=== PATIENT | male | born 1935 | race Caucasian/White ===

== ENCOUNTER → 2016-11-18 | Outpatient (CLI) | payer MEDICARE, BC ==
[2005-07-15 07:21] VITALS: TEMP 97.7
[~2016-11-18] MED LIST: ASPIRIN E.C. 8181 MG PO; CETIRIZINE 10 MG PO; CLARITIN10 MG PO; HCTZ 25MG TAB25 MG PO; HCTZ 25MG25 MG PO; LEXAPRO 5MG5 MG PO; MUCINEX1200 MG PO; MULTIPLE VITAMI1 TA1 PO; OFEV150 MG PO; PRILOSEC 20MG20 MG PO; RESTORIL30 MG PO; ROBITUSSIN DM 105 ML PO; TESSALON PERLE200 MG PO; ZITHROMAX 250M250 MG PO; ZOCOR 10MG10 MG PO; ZOCOR 20MG20 MG PO; ZYRTEC 10MG10 MG PO
== END ==
LOC: COL.RAD 10:37
DX: K21.9 Gastro-esophageal reflux disease without esophagitis (principal); K44.9 Diaphragmatic hernia without obstruction or gangrene

== ENCOUNTER 2016-12-22 10:10 | Observation (INO) | payer MEDICARE, BC ==
[~2016-12-22] VITALS: Ht 175.3 cm; Wt 78.9 kg
[2016-12-22] VITALS (10 sets, daily range): BP systolic 96–136; BP diastolic 33–88; PULSE 62–86; TEMP 98–98.7
[~2016-12-22 10:10] MED LIST changes: -LEXAPRO 5MG5 MG PO; -MUCINEX1200 MG PO; -OFEV150 MG PO; -ROBITUSSIN DM 105 ML PO; -ZITHROMAX 250M250 MG PO
[2016-12-22] MEDS ORDERED: PRILOSEC 20MG20 MG PO (11:14)
[2016-12-22] MEDS ORDERED: LEXAPRO 5MG5 MG PO (11:20)
[2016-12-22] MEDS ORDERED: OFEV150 MG PO (11:22)
[2016-12-23] VITALS (7 sets, daily range): BP systolic 94–142; BP diastolic 42–98; PULSE 68–99; TEMP 97.5–99.8
[2016-12-24 02:11] VITALS: BP 160/80; PULSE 77; TEMP 99.1
[2016-12-24 05:12] VITALS: BP 145/68; PULSE 69; TEMP 98.2
[2016-12-24 07:30] LABS: ADJUSTED CALCIUM 8.8 mg/dL (8.4-10.2); ALBUMIN 3.8 gm/dL (3.5-5.0); BILIRUBIN,TOTAL 0.9 mg/dL (0.0-1.0); CALCIUM 8.6 mg/dL (8.4-10.2); CREATININE, serum 0.83 mg/dL (0.66-1.25); TOTAL PROTEIN 6.8 gm/dL (6.4-8.2)
[2016-12-24 10:36] VITALS: BP 107/75; PULSE 71; TEMP 97.5
[2016-12-24 13:54] VITALS: BP 148/66; PULSE 71; TEMP 98.3
== END 2016-12-24 16:57 | disposition home or self-care (01) ==
LOC: SDCO 10:10 → SURG 14:37 → SDCO 12-23 20:40 → SURG 12-24 16:57
PROVIDERS: Surgery
DX: K21.0 Gastro-esophageal reflux disease with esophagitis (principal); K44.9 Diaphragmatic hernia without obstruction or gangrene; K22.70 Barrett's esophagus without dysplasia; R05 Cough; G47.00 Insomnia, unspecified; E78.5 Hyperlipidemia, unspecified; J45.909 Unspecified asthma, uncomplicated; G47.33 Obstructive sleep apnea (adult) (pediatric); M05.9 Rheumatoid arthritis with rheumatoid factor, unspecified; J84.112 Idiopathic pulmonary fibrosis; R09.02 Hypoxemia; Z87.891 Personal history of nicotine dependence; Z82.3 Family history of stroke; Z82.49 Family history of ischemic heart disease and other diseases of the circulatory system
CPT/HCPCS: OP; A9284; C1713; J1100; J1170; J1885; J2270; J2405; J2704; J2710; J7030; J7042; J7120

== ENCOUNTER 2017-02-19 08:29 | Inpatient (IN) | payer MEDICARE, BC ==
[~2017-02-19] VITALS: Ht 177.8 cm; Wt 75.4 kg
[~2017-02-19 08:29] MED LIST changes: +LEXAPRO 5MG5 MG PO; +OFEV150 MG PO
[2017-02-19] MEDS ORDERED: MUCINEX1200 MG PO (09:10)
[2017-02-19] MEDS ORDERED: ROBITUSSIN DM 105 ML PO (09:17)
[2017-02-19 09:30] LABS: HEMATOCRIT 38.9 % (42.0-52.0); HEMOGLOBIN 13.7 g/dl (13.5-18.0); MEAN CELL VOLUME 89 fl (80.0-100.0); MEAN CORPUSCULAR HEMOGLOBIN 31 pg (27.0-31.0); MEAN CORPUSCULAR HGB CONC 35 g/dl (33.0-37.0); MEAN PLATELET VOLUME 8.2 fl (7.4-10.4); PLATELET COUNT 149 K/mm3 (130-400); RED BLOOD COUNT 4.37 M/mm3 (4.20-5.60); REDCELL DISTRIBUTION WIDTH-CV 13.7 % (11.5-14.5); WHITE BLOOD COUNT 14.8 K/mm3 (4.8-10.8)
[2017-02-19 09:41] LABS: ADD PATHOLOGY DIFF REVIEW NO
[2017-02-19 09:42] LABS: INR 1.1 (0.8-3.0); PROTHROMBIN TIME 12.5 SECONDS (9.7-12.8)
[2017-02-19 09:45] LABS: ALBUMIN 4.3 gm/dL (3.5-5.0); BILIRUBIN,TOTAL 1.1 mg/dL (0.0-1.0); CALCIUM 9.2 mg/dL (8.4-10.2); CREATININE, serum 0.89 mg/dL (0.66-1.25); POTASSIUM 3.9 mmol/L (3.4-5.0); TOTAL PROTEIN 7.6 gm/dL (6.4-8.2)
[2017-02-19 10:33] LABS: BAND 45 % (0-10); NEUTROPHILS 48 % (42.0-75.2); PLATELET ESTIMATE NORMAL (NORMAL); TOTAL CELLS COUNTED 100
[2017-02-19 10:34] LABS: TOXIC GRANULATION PRESENT
[2017-02-19 11:05] LABS: PH 7 (5-8); SQUAMOUS EPITHELIAL None Seen /hpf; URINE APPEARANCE Clear; URINE BACTERIA None Seen /hpf; URINE BILIRUBIN Negative (NEGATIVE); URINE BLOOD 2+ (NEGATIVE); URINE COLOR Yellow; URINE GLUCOSE Negative (NEGATIVE); URINE KETONE Negative (NEGATIVE); URINE WBC 0-2 /hpf
[2017-02-19 13:10] VITALS: BP 150/79; PULSE 98; TEMP 99.6
[2017-02-19 15:39] VITALS: BP 145/65; PULSE 95; TEMP 98.9
[2017-02-19 19:38] VITALS: BP 135/68; PULSE 86; TEMP 98.6
[2017-02-19 23:16] VITALS: BP 119/57; PULSE 78; TEMP 98.7
[2017-02-20 04:58] VITALS: BP 118/80; PULSE 78; TEMP 98.3
[2017-02-20 07:15] LABS: MEAN CELL VOLUME 91 fl (80.0-100.0); MEAN CORPUSCULAR HGB CONC 35 g/dl (33.0-37.0); MEAN PLATELET VOLUME 8.5 fl (7.4-10.4); PLATELET COUNT 137 K/mm3 (130-400); RED BLOOD COUNT 3.74 M/mm3 (4.20-5.60); WHITE BLOOD COUNT 13.6 K/mm3 (4.8-10.8)
[2017-02-20 07:18] LABS: CALCIUM 8.5 mg/dL (8.4-10.2); CREATININE, serum 0.84 mg/dL (0.66-1.25); POTASSIUM 4.2 mmol/L (3.4-5.0)
[2017-02-20 07:19] LABS: ADD PATHOLOGY DIFF REVIEW NO; HEMATOCRIT 33.9 % (42.0-52.0); HEMOGLOBIN 11.7 g/dl (13.5-18.0); MEAN CORPUSCULAR HEMOGLOBIN 31 pg (27.0-31.0)
[2017-02-20 07:55] VITALS: BP 118/64; PULSE 80; TEMP 97.9
[2017-02-20 12:05] VITALS: BP 129/65; PULSE 72; TEMP 98
[2017-02-20 14:09] LABS: BAND 51 % (0-10); NEUTROPHILS 41 % (42.0-75.2); TOTAL CELLS COUNTED 100
[2017-02-20 14:10] LABS: PLATELET ESTIMATE DECREASED (NORMAL)
[2017-02-20 16:53] VITALS: BP 124/63; PULSE 76; TEMP 99.3
[2017-02-20 20:43] VITALS: BP 124/68; PULSE 75; TEMP 99.3
[2017-02-21 00:14] VITALS: BP 142/70; PULSE 68
[2017-02-21 04:37] VITALS: BP 136/72; PULSE 70; TEMP 97.6
[2017-02-21 07:46] VITALS: BP 130/70; PULSE 72; TEMP 98
[2017-02-21 08:33] LABS: BASO % 0.3 % (0.0-2.0); EOS # 0.5 (0.0-0.7); EOS % 4.3 % (0-4.0); GRAN # 8.3 (1.4-6.5); GRAN % 76.3 % (42.2-75.2); HEMOGLOBIN 12.2 g/dl (13.5-18.0); LYMPH # 1.4 (1.2-3.4); LYMPH % 12.7 % (20.0-51.0); MEAN CELL VOLUME 91 fl (80.0-100.0); MEAN CORPUSCULAR HEMOGLOBIN 32 pg (27.0-31.0); MEAN CORPUSCULAR HGB CONC 35 g/dl (33.0-37.0); MEAN PLATELET VOLUME 8.4 fl (7.4-10.4); MONO # 0.6 (0.1-0.6); MONO % 5.8 % (1.7-9.3); PLATELET COUNT 165 K/mm3 (130-400); RED BLOOD COUNT 3.83 M/mm3 (4.20-5.60); WHITE BLOOD COUNT 10.8 K/mm3 (4.8-10.8)
[2017-02-21 08:39] LABS: HEMATOCRIT 34.8 % (42.0-52.0)
[2017-02-21 08:42] LABS: CALCIUM 8.6 mg/dL (8.4-10.2); CREATININE, serum 0.82 mg/dL (0.66-1.25); POTASSIUM 3.9 mmol/L (3.4-5.0)
[2017-02-21 12:23] VITALS: BP 129/69; PULSE 65; TEMP 97.4
[2017-02-21] MEDS ORDERED: ZITHROMAX 250M250 MG PO (15:04)
[2017-02-21 15:50] VITALS: BP 143/71; PULSE 66; TEMP 98
[2017-02-21 17:24] VITALS: BP 143/71; PULSE 66; TEMP 98
== END 2017-02-21 17:50 | DRG 194 ==
LOC: COL.ER 08:29 → MEDICAL 10:50
PROVIDERS: Emergency Medicine; Family Medicine
DX: J18.9 Pneumonia, unspecified organism (principal); E87.1 Hypo-osmolality and hyponatremia; E44.0 Moderate protein-calorie malnutrition; G47.33 Obstructive sleep apnea (adult) (pediatric); I10 Essential (primary) hypertension; J84.112 Idiopathic pulmonary fibrosis; F32.9 Major depressive disorder, single episode, unspecified; E78.5 Hyperlipidemia, unspecified; Z68.23 Body mass index [BMI] 23.0-23.9, adult; Z87.891 Personal history of nicotine dependence; Z99.81 Dependence on supplemental oxygen; W06.XXXA Fall from bed, initial encounter
CPT/HCPCS: 99222-AI; 99232-AI; 99239; G8978-GP; G8979-GP; J0696; J1650; J1956; J3480; J7030

== ENCOUNTER 2017-02-21 17:44 | Inpatient (IN) | payer MEDICARE, BC ==
[~2017-02-21] VITALS: Ht 177.8 cm; Wt 74.8 kg
[~2017-02-21 17:44] MED LIST changes: +MUCINEX1200 MG PO; +ROBITUSSIN DM 105 ML PO; +ZITHROMAX 250M250 MG PO
[2017-02-21 17:55] VITALS: BP 148/67; PULSE 76; TEMP 97.8
[2017-02-22 04:44] VITALS: BP 129/73; PULSE 64; TEMP 98.4
[2017-02-22 07:26] VITALS: BP 100/82; PULSE 71; TEMP 98.6
[2017-02-22 18:54] VITALS: BP 140/80; PULSE 72; TEMP 97.8
[2017-02-23 03:38] VITALS: BP 132/75; PULSE 89; TEMP 99.3
[2017-02-23 16:23] VITALS: BP 138/64; PULSE 71; TEMP 98.4
[2017-02-24 05:14] VITALS: BP 111/87; PULSE 83; TEMP 98.7
[2017-02-24 17:05] VITALS: BP 131/71; PULSE 66; TEMP 97.9
[2017-02-25 05:00] VITALS: BP 112/55; PULSE 64; TEMP 98.6
[2017-02-25] MEDS ORDERED: TYLENOL 325MG325 MG PO (09:27)
== END 2017-02-25 12:35 | disposition home or self-care (01) | DRG 947 ==
DX: R53.81 Other malaise (principal); J18.9 Pneumonia, unspecified organism; E44.0 Moderate protein-calorie malnutrition; J84.112 Idiopathic pulmonary fibrosis; I10 Essential (primary) hypertension; F32.9 Major depressive disorder, single episode, unspecified
CPT/HCPCS: 99222-AI; 99232-AI; 99239; J1650

== ENCOUNTER 2017-04-12 12:06 | Inpatient (IN) | payer MEDICARE, BC ==
[~2017-04-12] VITALS: Ht 175.3 cm; Wt 73.4 kg
[~2017-04-12 12:06] MED LIST changes: +TYLENOL 325MG325 MG PO
[2017-04-12 14:13] LABS: BASO # 0.1 (0.0-0.2); BASO % 0.6 % (0.0-2.0); EOS # 0.3 (0.0-0.7); EOS % 2.4 % (0-4.0); GRAN # 8.6 (1.4-6.5); GRAN % 78.2 % (42.2-75.2); HEMOGLOBIN 14.3 g/dl (13.5-18.0); LYMPH # 1.2 (1.2-3.4); LYMPH % 11.2 % (20.0-51.0); MEAN CELL VOLUME 93 fl (80.0-100.0); MEAN CORPUSCULAR HEMOGLOBIN 32 pg (27.0-31.0); MEAN CORPUSCULAR HGB CONC 34 g/dl (33.0-37.0); MEAN PLATELET VOLUME 8.4 fl (7.4-10.4); MONO # 0.8 (0.1-0.6); MONO % 7.3 % (1.7-9.3); PLATELET COUNT 159 K/mm3 (130-400); RED BLOOD COUNT 4.54 M/mm3 (4.20-5.60)
[2017-04-12 14:20] LABS: COLLECTION METHOD CLEAN CATCH
[2017-04-12 14:22] LABS: ADJUSTED CALCIUM 9.2 mg/dL (8.4-10.2); ALBUMIN 4.7 gm/dL (3.5-5.0); BILIRUBIN,TOTAL 0.8 mg/dL (0.0-1.0); CALCIUM 9.8 mg/dL (8.4-10.2); CREATININE, serum 0.88 mg/dL (0.66-1.25); MAGNESIUM 1.9 mg/dL (1.6-2.3); PHOSPHOROUS 2.7 mg/dL (2.5-4.5); POTASSIUM 4.2 mmol/L (3.4-5.0); TOTAL PROTEIN 7.8 gm/dL (6.4-8.2)
[2017-04-12 14:27] LABS: MUCOUS Present /lpf; PH 7 (5-8); SQUAMOUS EPITHELIAL None Seen /hpf; URINE APPEARANCE Clear; URINE BACTERIA None Seen /hpf; URINE BILIRUBIN Negative (NEGATIVE); URINE BLOOD Negative (NEGATIVE); URINE COLOR Yellow; URINE GLUCOSE Negative (NEGATIVE); URINE KETONE Negative (NEGATIVE); URINE LEUKOCYTE ESTERASE Negative (NEGATIVE); URINE PROTEIN(semi-quant) 1+ (NEGATIVE); URINE RBC 0-2 /hpf; URINE UROBILINOGEN Negative (NEGATIVE); URINE WBC 0-2 /hpf
[2017-04-12 14:32] LABS: TROPONIN-I 0.03 ng/mL (0.000-0.034)
[2017-04-12] MEDS ORDERED: TESSALON PERLE200 MG PO (18:51)
[2017-04-12] MEDS ORDERED: ZYRTEC 10MG10 MG PO (18:51)
[2017-04-12] MEDS ORDERED: LEXAPRO 5MG5 MG PO (18:52)
[2017-04-12] MEDS ORDERED: HCTZ 25MG TAB25 MG PO (18:52)
[2017-04-12] MEDS ORDERED: CENTRUM SILVER1 TA2 PO (18:52)
[2017-04-12] MEDS ORDERED: ZOCOR 20MG20 MG PO (18:53)
[2017-04-12] MEDS ORDERED: RESTORIL30 MG (18:53)
[2017-04-12] MEDS ORDERED: OFEV150 MG PO (18:53)
[2017-04-12] MEDS ORDERED: KENALOG DENTAL P5 GM DT (18:54)
[2017-04-12] MEDS ORDERED: OFEV100 MG PO (18:59)
[2017-04-12 20:49] LABS: PROTHROMBIN TIME 11.1 SECONDS (9.7-12.8)
[2017-04-12 21:00] LABS: MAGNESIUM 1.8 mg/dL (1.6-2.3)
[2017-04-12 21:23] LABS: TROPONIN-I 6 HR POST INITIAL 0.035 ng/mL (0.000-0.034)
[2017-04-12 21:57] VITALS: BP 134/77; PULSE 70; TEMP 98.1
[2017-04-12 23:42] VITALS: BP 125/60; PULSE 77; TEMP 98.3
[2017-04-13] VITALS (17 sets, daily range): BP systolic 109–157; BP diastolic 54–99; PULSE 18–95; TEMP 97.4–98.2
[2017-04-13 07:30] LABS: BASO # 0.1 (0.0-0.2); BASO % 0.9 % (0.0-2.0); EOS # 0.7 (0.0-0.7); EOS % 9.5 % (0-4.0); GRAN # 4.2 (1.4-6.5); GRAN % 55.3 % (42.2-75.2); LYMPH # 1.9 (1.2-3.4); LYMPH % 25.2 % (20.0-51.0); MEAN CELL VOLUME 93 fl (80.0-100.0); MEAN CORPUSCULAR HGB CONC 34 g/dl (33.0-37.0); MEAN PLATELET VOLUME 8.4 fl (7.4-10.4); MONO # 0.7 (0.1-0.6); MONO % 8.7 % (1.7-9.3); PLATELET COUNT 150 K/mm3 (130-400); WHITE BLOOD COUNT 7.6 K/mm3 (4.8-10.8)
[2017-04-13 07:44] LABS: ADJUSTED CALCIUM 8.9 mg/dL (8.4-10.2); ALBUMIN 3.6 gm/dL (3.5-5.0); BILIRUBIN,TOTAL 0.6 mg/dL (0.0-1.0); CALCIUM 8.6 mg/dL (8.4-10.2); CHOLESTEROL RISK RATIO 2.8; CREATININE, serum 0.89 mg/dL (0.66-1.25); POTASSIUM 3.7 mmol/L (3.4-5.0); TOTAL PROTEIN 5.9 gm/dL (6.4-8.2)
[2017-04-13 07:46] LABS: HEMATOCRIT 35.2 % (42.0-52.0); HEMOGLOBIN 12.1 g/dl (13.5-18.0); MEAN CORPUSCULAR HEMOGLOBIN 32 pg (27.0-31.0)
[2017-04-13 07:54] LABS: TROPONIN-I 0.019 ng/mL (0.000-0.034)
[2017-04-13 21:24] LABS: THYROID STIMULATING HORMONE 4.69 uIU/mL (0.465-4.680)
[2017-04-14] VITALS (7 sets, daily range): BP systolic 105–127; BP diastolic 56–69; PULSE 56–66; TEMP 97.2–98.5
[2017-04-14 07:24] LABS: BASO # 0.1 (0.0-0.2); BASO % 0.7 % (0.0-2.0); EOS # 0.8 (0.0-0.7); EOS % 7.4 % (0-4.0); GRAN # 6.9 (1.4-6.5); GRAN % 64.9 % (42.2-75.2); HEMATOCRIT 38.3 % (42.0-52.0); LYMPH % 19.1 % (20.0-51.0); MEAN CELL VOLUME 95 fl (80.0-100.0); MEAN CORPUSCULAR HEMOGLOBIN 32 pg (27.0-31.0); MEAN CORPUSCULAR HGB CONC 34 g/dl (33.0-37.0); MEAN PLATELET VOLUME 8.2 fl (7.4-10.4); MONO # 0.8 (0.1-0.6); MONO % 7.5 % (1.7-9.3); PLATELET COUNT 165 K/mm3 (130-400); RED BLOOD COUNT 4.05 M/mm3 (4.20-5.60); WHITE BLOOD COUNT 10.6 K/mm3 (4.8-10.8)
[2017-04-14 07:47] LABS: CREATININE, serum 0.94 mg/dL (0.66-1.25); POTASSIUM 4.1 mmol/L (3.4-5.0)
[2017-04-15 00:04] VITALS: BP 122/59; PULSE 58; TEMP 98.4
[2017-04-15 03:47] VITALS: BP 123/65; PULSE 55; TEMP 97.2
[2017-04-15 06:43] LABS: BASO # 0.1 (0.0-0.2); BASO % 0.7 % (0.0-2.0); EOS # 0.7 (0.0-0.7); EOS % 9.6 % (0-4.0); GRAN # 4.1 (1.4-6.5); GRAN % 59.4 % (42.2-75.2); HEMATOCRIT 37.5 % (42.0-52.0); HEMOGLOBIN 12.9 g/dl (13.5-18.0); LYMPH # 1.5 (1.2-3.4); LYMPH % 20.9 % (20.0-51.0); MEAN CELL VOLUME 94 fl (80.0-100.0); MEAN CORPUSCULAR HEMOGLOBIN 32 pg (27.0-31.0); MEAN CORPUSCULAR HGB CONC 34 g/dl (33.0-37.0); MEAN PLATELET VOLUME 7.7 fl (7.4-10.4); MONO # 0.6 (0.1-0.6); MONO % 8.8 % (1.7-9.3); PLATELET COUNT 133 K/mm3 (130-400)
[2017-04-15 06:58] LABS: CALCIUM 8.9 mg/dL (8.4-10.2); CREATININE, serum 0.88 mg/dL (0.66-1.25); MAGNESIUM 1.8 mg/dL (1.6-2.3); PHOSPHOROUS 3.2 mg/dL (2.5-4.5); POTASSIUM 4.1 mmol/L (3.4-5.0)
[2017-04-15 08:26] VITALS: BP 114/61; PULSE 69; TEMP 97.8
[2017-04-15] MEDS ORDERED: TOPROL XL 50MG50 MG PO (08:36)
[2017-04-15] MEDS ORDERED: NITRO-DUR0.6 MG/PAT TD ×2 (08:36)
[2017-04-15] MEDS ORDERED: NITRO-DUR0.4 MG/PAT TD (10:21)
== END 2017-04-15 12:35 | disposition home or self-care (01) | DRG 281 ==
LOC: COL.ER 12:06 → MEDICAL 18:37
PROVIDERS: Emergency Medicine; Nurse Practitioner Family; Physician Assistant; Psychiatry & Neurology Neurology
PROC: B2111ZZ Fluoroscopy of Multiple Coronary Arteries using Low Osmolar Contrast (ICD-10-PCS; principal; 2017-04-13)
PROC: 4A023N6 Measurement of Cardiac Sampling and Pressure, Right Heart, Percutaneous Approach (ICD-10-PCS; 2017-04-13)
DX: I21.4 Non-ST elevation (NSTEMI) myocardial infarction (principal); E46 Unspecified protein-calorie malnutrition; E87.1 Hypo-osmolality and hyponatremia; I10 Essential (primary) hypertension; I25.82 Chronic total occlusion of coronary artery; I25.10 Atherosclerotic heart disease of native coronary artery without angina pectoris; J84.112 Idiopathic pulmonary fibrosis; G47.33 Obstructive sleep apnea (adult) (pediatric); Z87.891 Personal history of nicotine dependence; I27.20 Pulmonary hypertension, unspecified
CPT/HCPCS: 99223-AI; 99233-AI; 99239; A9502; C1760; C1894; G0103; J1650; J2250; J2785; J3010; J7030; J7050; Q9967

== ENCOUNTER 2017-06-12 13:34 | Inpatient (IN) | payer MEDICARE, BC ==
[~2017-06-12] VITALS: Ht 177.8 cm; Wt 72.5 kg
[2017-06-12] VITALS (387 sets, daily range): BP systolic 126; BP diastolic 72; PULSE 62–65; TEMP 97.3; O2SAT 82–100
[~2017-06-12 13:34] MED LIST changes: +CENTRUM SILVER1 TA2 PO; +KENALOG DENTAL P5 GM DT; +NITRO-DUR0.4 MG/PAT TD; +NITRO-DUR0.6 MG/PAT TD; +OFEV100 MG PO; +RESTORIL30 MG; +TOPROL XL 50MG50 MG PO
[2017-06-12 14:04] LABS: BASO # 0.1 (0.0-0.2); BASO % 0.6 % (0.0-2.0); EOS # 0.5 (0.0-0.7); EOS % 5.4 % (0-4.0); GRAN # 5.5 (1.4-6.5); HEMATOCRIT 38.9 % (42.0-52.0); HEMOGLOBIN 13.2 g/dl (13.5-18.0); LYMPH # 1.7 (1.2-3.4); LYMPH % 20.7 % (20.0-51.0); MEAN CELL VOLUME 92 fl (80.0-100.0); MEAN CORPUSCULAR HEMOGLOBIN 31 pg (27.0-31.0); MEAN CORPUSCULAR HGB CONC 34 g/dl (33.0-37.0); MEAN PLATELET VOLUME 7.9 fl (7.4-10.4); MONO # 0.6 (0.1-0.6); MONO % 6.9 % (1.7-9.3); PLATELET COUNT 123 K/mm3 (130-400); RED BLOOD COUNT 4.24 M/mm3 (4.20-5.60); REDCELL DISTRIBUTION WIDTH-CV 13.3 % (11.5-14.5)
[2017-06-12 14:10] LABS: PROTHROMBIN TIME 11.6 SECONDS (9.7-12.8)
[2017-06-12 14:13] LABS: PARTIAL THROMBOPLASTIN TIME 26.7 SECONDS (26.0-37.0)
[2017-06-12] MEDS ORDERED: ARICEPT 5MG PO (14:15)
[2017-06-12] MEDS ORDERED: VENTOLIN0.09 MG IH (14:15)
[2017-06-12] MEDS ORDERED: FLOMAX 0.40.4 MG/CAP PO (14:15)
[2017-06-12 14:16] LABS: ALANINE AMINOTRANSFERASE 32 U/L (21-72); ALBUMIN 4.3 gm/dL (3.5-5.0); ALKALINE PHOSPHATASE 74 U/L (50-136); ANION GAP 10 mmol/L (7-16); AST,SGOT 27 U/L (15-37); BILIRUBIN,TOTAL 0.7 mg/dL (0.0-1.0); BLOOD UREA NITROGEN 14 mg/dL (9-20); CARBON DIOXIDE 27 mmol/L (22-30); GLUCOSE 143 mg/dL (74-106); SODIUM 125 mmol/L (137-145); TOTAL PROTEIN 7.3 gm/dL (6.4-8.2)
[2017-06-12 14:18] LABS: CHLORIDE 88 mmol/L (98-107)
[2017-06-12 14:32] LABS: PROLACTIN 74.1 ng/mL (3.7-17.9)
[2017-06-12 14:51] LABS: TROPONIN-I < 0.012 ng/mL (0.000-0.034)
[2017-06-12] MEDS ORDERED: OFEV150 MG PO (16:18)
[2017-06-12] MEDS ORDERED: PRILOSEC 20MG20 MG PO (16:20)
[2017-06-12] MEDS ORDERED: HCTZ 25MG TAB25 MG PO (16:20)
[2017-06-12] MEDS ORDERED: MUCINEX1200 MG PO (16:21)
[2017-06-12 16:24] LABS: ARTERIAL BLD GAS O2 SATURATION 92.6 % (92-100); ARTERIAL BLD GAS TCO2 CT 30.8; ARTERIAL BLOOD GAS BASE EXCESS 3.4 (-2-2); ARTERIAL BLOOD GAS HCO3 29.2 meq/L (22-26); ARTERIAL BLOOD GAS PCO2 49.3 mmHg (35-45); ARTERIAL BLOOD GAS PO2 65.5 mmHg (80-100); ARTERIAL BLOOD GAS pH 7.39 (7.35-7.45)
[2017-06-12 19:29] LABS: COLLECTION METHOD CLEAN CATCH
[2017-06-12 19:47] LABS: MUCOUS Present /lpf; PH 6 (5-8); SQUAMOUS EPITHELIAL None Seen /hpf; URINE APPEARANCE Clear; URINE BACTERIA None Seen /hpf; URINE BILIRUBIN Negative (NEGATIVE); URINE BLOOD Negative (NEGATIVE); URINE COLOR Yellow; URINE GLUCOSE Negative (NEGATIVE); URINE KETONE Negative (NEGATIVE); URINE LEUKOCYTE ESTERASE Negative (NEGATIVE); URINE NITRATE Negative (NEGATIVE); URINE PROTEIN(semi-quant) 1+ (NEGATIVE); URINE RBC 0-2 /hpf; URINE UROBILINOGEN Negative (NEGATIVE)
[2017-06-12 22:20] LABS: ANION GAP 7 mmol/L (7-16); BLOOD UREA NITROGEN 15 mg/dL (9-20); CALCIUM 8.8 mg/dL (8.4-10.2); CARBON DIOXIDE 29 mmol/L (22-30); CHLORIDE 90 mmol/L (98-107); CREATININE, serum 0.94 mg/dL (0.66-1.25); GLUCOSE 142 mg/dL (74-106); POTASSIUM 4.3 mmol/L (3.4-5.0); SODIUM 126 mmol/L (137-145)
[2017-06-12 22:33] LABS: TROPONIN-I 6 HR POST INITIAL < 0.012 ng/mL (0.000-0.034)
[2017-06-13] VITALS (645 sets, daily range): BP systolic 137–148; BP diastolic 67–88; PULSE 65–76; TEMP 97.9–98.9; O2SAT 56–100
[2017-06-13 06:19] LABS: BASO # 0.1 (0.0-0.2); BASO % 0.6 % (0.0-2.0); EOS # 0.4 (0.0-0.7); EOS % 4.7 % (0-4.0); GRAN # 5.4 (1.4-6.5); GRAN % 64.5 % (42.2-75.2); HEMOGLOBIN 12.1 g/dl (13.5-18.0); LYMPH # 1.8 (1.2-3.4); LYMPH % 21.4 % (20.0-51.0); MEAN CELL VOLUME 92 fl (80.0-100.0); MEAN CORPUSCULAR HEMOGLOBIN 32 pg (27.0-31.0); MEAN CORPUSCULAR HGB CONC 35 g/dl (33.0-37.0); MEAN PLATELET VOLUME 8.3 fl (7.4-10.4); MONO # 0.7 (0.1-0.6); MONO % 8.4 % (1.7-9.3); PLATELET COUNT 133 K/mm3 (130-400); RED BLOOD COUNT 3.79 M/mm3 (4.20-5.60); REDCELL DISTRIBUTION WIDTH-CV 13.2 % (11.5-14.5)
[2017-06-13 06:29] LABS: HEMATOCRIT 34.7 % (42.0-52.0)
[2017-06-13 06:38] LABS: CALCIUM 8.7 mg/dL (8.4-10.2); CREATININE, serum 0.87 mg/dL (0.66-1.25); MAGNESIUM 1.7 mg/dL (1.6-2.3); PHOSPHOROUS 3.3 mg/dL (2.5-4.5); POTASSIUM 4.2 mmol/L (3.4-5.0)
[2017-06-13] MEDS ORDERED: TYLENOL 325MG325 MG PO (10:16)
[2017-06-13] MEDS ORDERED: TOPROL XL 50MG50 MG PO (10:17)
[2017-06-13] MEDS ORDERED: OFEV150 MG PO (10:19)
[2017-06-13] MEDS ORDERED: FLOMAX 0.40.4 MG/CAP PO (10:20)
[2017-06-13] MEDS ORDERED: ARICEPT 5MG PO (10:21)
[2017-06-13] MEDS ORDERED: NITRO-DUR0.4 MG/PAT TD (10:22)
[2017-06-13] MEDS ORDERED: TRIAMCINOLONE A15 GM TP (10:23)
[2017-06-14 01:10] VITALS: BP 140/69; PULSE 79; TEMP 98.2
[2017-06-14 05:44] VITALS: BP 133/57; PULSE 61; TEMP 97.8
[2017-06-14 07:50] VITALS: BP 134/109; PULSE 61; TEMP 98.5
[2017-06-14 12:43] LABS: BASO # 0.1 (0.0-0.2); BASO % 0.6 % (0.0-2.0); EOS # 0.3 (0.0-0.7); EOS % 4.1 % (0-4.0); GRAN # 5.1 (1.4-6.5); GRAN % 65.5 % (42.2-75.2); HEMOGLOBIN 12.8 g/dl (13.5-18.0); LYMPH # 1.7 (1.2-3.4); MEAN CELL VOLUME 91 fl (80.0-100.0); MEAN CORPUSCULAR HEMOGLOBIN 32 pg (27.0-31.0); MEAN CORPUSCULAR HGB CONC 35 g/dl (33.0-37.0); MEAN PLATELET VOLUME 7.6 fl (7.4-10.4); MONO # 0.6 (0.1-0.6); MONO % 7.5 % (1.7-9.3); PLATELET COUNT 111 K/mm3 (130-400); RED BLOOD COUNT 4.04 M/mm3 (4.20-5.60); REDCELL DISTRIBUTION WIDTH-CV 13.2 % (11.5-14.5)
[2017-06-14 12:48] LABS: HEMATOCRIT 36.8 % (42.0-52.0)
[2017-06-14 12:52] LABS: CALCIUM 8.8 mg/dL (8.4-10.2); CHOLESTEROL RISK RATIO 3.3; CREATININE, serum 0.97 mg/dL (0.66-1.25); MAGNESIUM 1.8 mg/dL (1.6-2.3); POTASSIUM 4.1 mmol/L (3.4-5.0)
[2017-06-14] MEDS ORDERED: TOPROL XL 25MG25 MG PO (15:07)
[2017-06-14] MEDS ORDERED: ASPI325T6 PO (15:08)
[2017-06-14] MEDS ORDERED: KEPPRA 500MG500 MG PO (15:12)
[2017-06-14 15:23] VITALS: BP 121/51; PULSE 76; TEMP 97.6
== END 2017-06-14 16:42 | disposition home or self-care (01) | DRG 101 ==
LOC: COL.ER 13:34 → ICU 15:17 → MEDICAL 06-13 17:10
PROVIDERS: Emergency Medicine; Internal Medicine; Nurse Practitioner Family
DX: R56.9 Unspecified convulsions (principal); E87.1 Hypo-osmolality and hyponatremia; I50.30 Unspecified diastolic (congestive) heart failure; R55 Syncope and collapse; I11.0 Hypertensive heart disease with heart failure; D64.9 Anemia, unspecified; G47.33 Obstructive sleep apnea (adult) (pediatric); J84.112 Idiopathic pulmonary fibrosis; F32.9 Major depressive disorder, single episode, unspecified; I10 Essential (primary) hypertension; I27.20 Pulmonary hypertension, unspecified; R73.9 Hyperglycemia, unspecified; Z87.891 Personal history of nicotine dependence; Z86.73 Personal history of transient ischemic attack (TIA), and cerebral infarction without residual deficits
CPT/HCPCS: 99222-AI; 99233-AI; 99239; A9585; J1644; J7030

== ENCOUNTER 2017-11-18 11:03 | Inpatient (IN) | payer MEDICARE, BC ==
[~2017-11-18] VITALS: Ht 177.8 cm; Wt 63.3 kg
[~2017-11-18 11:03] MED LIST changes: +ANTI-DIARRHEAL2 MG PO; +ARICEPT 5MG PO; +ASPI325T6 PO; +DITROPAN XL15 MG PO; +FLOMAX 0.40.4 MG/CAP PO; +KEPPRA 500MG500 MG PO; +LEVOXYL0.075 MG PO; -RESTORIL30 MG; +SYNTHROID0.075 MG/T PO; +TOPROL XL 25MG25 MG PO; +TRIAMCINOLONE A15 GM TP; +VENTOLIN0.09 MG IH
[2017-11-18 14:52] VITALS: BP 119/59; PULSE 61; TEMP 98.6
[2017-11-19 05:31] VITALS: BP 167/89; PULSE 84; TEMP 98.5
[2017-11-19 16:48] VITALS: BP 127/69; PULSE 57; TEMP 98.3
[2017-11-20 06:00] VITALS: BP 168/85; PULSE 51; TEMP 97.6
[2017-11-20 16:34] VITALS: BP 131/71; PULSE 65; TEMP 97.5
[2017-11-21 06:00] VITALS: BP 139/69; PULSE 63; TEMP 98.8
[2017-11-21 15:48] VITALS: BP 134/66; PULSE 66; TEMP 98.6
[2017-11-22 04:57] VITALS: BP 145/71; PULSE 80; TEMP 98.4
[2017-11-22 16:20] VITALS: BP 131/68; PULSE 68; TEMP 98.3
[2017-11-23 04:29] VITALS: BP 158/78; PULSE 66; TEMP 98.1
[2017-11-23 07:57] LABS: CALCIUM 8.9 mg/dL (8.4-10.2); CREATININE, serum 0.72 mg/dL (0.66-1.25); MAGNESIUM 1.7 mg/dL (1.6-2.3); POTASSIUM 4.3 mmol/L (3.4-5.0)
[2017-11-23 16:15] VITALS: BP 137/81; PULSE 73; TEMP 97.8
[2017-11-24 06:00] VITALS: BP 176/78; PULSE 56; TEMP 97.9
[2017-11-24 16:09] VITALS: BP 119/97; PULSE 66; TEMP 97.5
[2017-11-25 06:00] VITALS: BP 177/75; PULSE 64; TEMP 97.8
[2017-11-25 16:51] VITALS: BP 131/83; PULSE 72; TEMP 97.8
[2017-11-26 05:31] VITALS: BP 156/85; PULSE 73; TEMP 98.4
[2017-11-26 16:49] VITALS: BP 134/69; PULSE 70; TEMP 98.3
[2017-11-27 03:35] VITALS: BP 150/93; PULSE 72; TEMP 98.4
[2017-11-27 15:39] VITALS: BP 132/78; PULSE 69; TEMP 98.6
[2017-11-28 04:25] VITALS: BP 165/75; PULSE 63; TEMP 98.5
[2017-11-28 16:20] VITALS: BP 129/60; PULSE 72; TEMP 97.7
[2017-11-29 06:00] VITALS: BP 166/72; PULSE 64; TEMP 97.9
[2017-11-29 18:27] VITALS: BP 133/62; PULSE 69; TEMP 98.9
[2017-11-30 05:45] VITALS: BP 160/71; PULSE 69; TEMP 98.5
== END 2017-11-30 14:55 | disposition home or self-care (01) | DRG 948 ==
PROVIDERS: Internal Medicine
DX: R53.81 Other malaise (principal); E87.1 Hypo-osmolality and hyponatremia; I50.32 Chronic diastolic (congestive) heart failure; E86.0 Dehydration; I11.0 Hypertensive heart disease with heart failure; I27.23 Pulmonary hypertension due to lung diseases and hypoxia; J84.112 Idiopathic pulmonary fibrosis; I25.10 Atherosclerotic heart disease of native coronary artery without angina pectoris; Z91.81 History of falling; R19.7 Diarrhea, unspecified; E87.6 Hypokalemia; D69.6 Thrombocytopenia, unspecified
CPT/HCPCS: 99222-AI; 99232-AI; 99239; J1650

== ENCOUNTER 2017-12-14 16:12 | Emergency (ER) | payer MEDICARE, BC ==
[~2017-12-14] VITALS: Ht 177.8 cm; Wt 63.6 kg
[2017-12-14 16:21] VITALS: TEMP 97.9
[2017-12-14 16:51] LABS: BASO # 0.1 (0.0-0.2); BASO % 0.6 % (0.0-2.0); EOS # 0.5 (0.0-0.7); GRAN # 5.3 (1.4-6.5); GRAN % 58.9 % (42.2-75.2); HEMOGLOBIN 10.9 g/dl (13.5-18.0); LYMPH # 2.4 (1.2-3.4); LYMPH % 26.3 % (20.0-51.0); MEAN CELL VOLUME 93 fl (80.0-100.0); MEAN CORPUSCULAR HEMOGLOBIN 31 pg (27.0-31.0); MEAN CORPUSCULAR HGB CONC 33 g/dl (33.0-37.0); MEAN PLATELET VOLUME 8.3 fl (7.4-10.4); MONO # 0.7 (0.1-0.6); MONO % 7.8 % (1.7-9.3); PLATELET COUNT 145 K/mm3 (130-400); REDCELL DISTRIBUTION WIDTH-CV 13.6 % (11.5-14.5)
[2017-12-14 16:53] LABS: INR 1.1 (0.8-3.0); PROTHROMBIN TIME 12.3 SECONDS (9.7-12.8)
[2017-12-14 16:55] LABS: HEMATOCRIT 32.6 % (42.0-52.0)
[2017-12-14 16:57] LABS: ALANINE AMINOTRANSFERASE 27 U/L (21-72); ALBUMIN 3.2 gm/dL (3.5-5.0); ALKALINE PHOSPHATASE 72 U/L (50-136); ANION GAP 9 mmol/L (7-16); AST,SGOT 21 U/L (15-37); BILIRUBIN,TOTAL 0.3 mg/dL (0.0-1.0); BLOOD UREA NITROGEN 19 mg/dL (9-20); CALCIUM 8.4 mg/dL (8.4-10.2); CARBON DIOXIDE 27 mmol/L (22-30); CHLORIDE 93 mmol/L (98-107); CREATININE, serum 0.82 mg/dL (0.66-1.25); GLUCOSE 157 mg/dL (74-106); POTASSIUM 4.1 mmol/L (3.4-5.0); SODIUM 129 mmol/L (137-145)
[2017-12-14 17:13] LABS: TROPONIN-I < 0.012 ng/mL (0.000-0.034)
[2017-12-14] MEDS ORDERED: FLOMAX 0.40.4 MG/CAP PO (17:43)
[2017-12-14] MEDS ORDERED: TESSALON P100 MG/CAP PO (17:44)
[2017-12-14] MEDS ORDERED: HCTZ 25MG TAB25 MG PO (17:48)
[2017-12-14] MEDS ORDERED: PRILOSEC 20MG20 MG PO (17:48)
[2017-12-14] MEDS ORDERED: OFEV150 MG PO (17:49)
[2017-12-14] MEDS ORDERED: RESTORIL30 MG PO (17:49)
[2017-12-14 18:19] VITALS: BP 137/89; PULSE 70
== END 2017-12-14 18:20 | disposition short-term general hospital (02) ==
LOC: COL.ER 16:12
PROVIDERS: Emergency Medicine
DX: S01.01XA Laceration without foreign body of scalp, initial encounter (principal); I50.9 Heart failure, unspecified; E78.5 Hyperlipidemia, unspecified; E87.1 Hypo-osmolality and hyponatremia; Z86.73 Personal history of transient ischemic attack (TIA), and cerebral infarction without residual deficits; Z79.82 Long term (current) use of aspirin; W18.39XA Other fall on same level, initial encounter; Y92.481 Parking lot as the place of occurrence of the external cause

== ENCOUNTER 2017-12-18 11:29 | Inpatient (IN) | payer MEDICARE, BC ==
[~2017-12-18] VITALS: Ht 177.8 cm; Wt 63.2 kg
[~2017-12-18 11:29] MED LIST changes: +TESSALON P100 MG/CAP PO
[2017-12-18 13:24] VITALS: BP 134/66; PULSE 68; TEMP 97.5
[2017-12-18] MEDS ORDERED: PROAIR HFA0.09 MG/AC IH (14:14)
[2017-12-18] MEDS ORDERED: XOPENEX 0.0.63 MG/3 IH (14:18)
[2017-12-18] MEDS ORDERED: INCRUSE EL62.5 MCG/A IH (14:20)
[2017-12-19 04:40] VITALS: BP 152/78; PULSE 64; TEMP 97.5
[2017-12-19 06:59] LABS: CALCIUM 8.5 mg/dL (8.4-10.2); CREATININE, serum 0.83 mg/dL (0.66-1.25); POTASSIUM 3.7 mmol/L (3.4-5.0)
[2017-12-19 11:50] VITALS: BP 125/73; PULSE 73; TEMP 97.7
[2017-12-19 17:49] VITALS: BP 108/57; PULSE 83; TEMP 97.5
[2017-12-19 20:00] VITALS: BP 134/76; PULSE 78; TEMP 98.1
[2017-12-20 05:14] VITALS: BP 136/66; PULSE 86; TEMP 98.5
[2017-12-20 11:48] VITALS: BP 109/60; BP 132/63; PULSE 67; PULSE 70; TEMP 98; TEMP 98.3
[2017-12-20 16:00] VITALS: BP 105/60; PULSE 69; TEMP 97.8
[2017-12-20 20:00] VITALS: BP 123/64; PULSE 60; TEMP 97.4
[2017-12-21 06:00] VITALS: BP 133/67; PULSE 57; TEMP 97.8
[2017-12-21 06:34] LABS: BASO # 0.1 (0.0-0.2); BASO % 0.7 % (0.0-2.0); EOS # 0.7 (0.0-0.7); EOS % 8.4 % (0-4.0); GRAN # 4.5 (1.4-6.5); GRAN % 53.4 % (42.2-75.2); HEMOGLOBIN 10.9 g/dl (13.5-18.0); LYMPH # 2.5 (1.2-3.4); LYMPH % 29.8 % (20.0-51.0); MEAN CELL VOLUME 93 fl (80.0-100.0); MEAN CORPUSCULAR HEMOGLOBIN 31 pg (27.0-31.0); MEAN CORPUSCULAR HGB CONC 34 g/dl (33.0-37.0); MEAN PLATELET VOLUME 7.9 fl (7.4-10.4); MONO # 0.6 (0.1-0.6); MONO % 7.2 % (1.7-9.3); PLATELET COUNT 137 K/mm3 (130-400); RED BLOOD COUNT 3.48 M/mm3 (4.20-5.60); REDCELL DISTRIBUTION WIDTH-CV 13.5 % (11.5-14.5)
[2017-12-21 06:36] LABS: HEMATOCRIT 32.2 % (42.0-52.0)
[2017-12-21 06:51] LABS: CALCIUM 8.6 mg/dL (8.4-10.2); CREATININE, serum 0.8 mg/dL (0.66-1.25); MAGNESIUM 1.7 mg/dL (1.6-2.3); POTASSIUM 4.4 mmol/L (3.4-5.0)
[2017-12-21 11:00] VITALS: BP 102/48; PULSE 70
[2017-12-21 16:12] VITALS: BP 110/58; PULSE 68; TEMP 97.6
[2017-12-21 20:00] VITALS: BP 126/61; PULSE 64
[2017-12-22 04:09] VITALS: BP 140/61; PULSE 61; TEMP 97.8
[2017-12-22 12:01] VITALS: BP 124/72; PULSE 64; TEMP 98
[2017-12-22 15:45] VITALS: BP 123/62; PULSE 60; TEMP 98.2
[2017-12-22 20:00] VITALS: BP 142/70; PULSE 69; TEMP 97.5
[2017-12-23 05:53] VITALS: BP 157/76; PULSE 64; TEMP 989.1
[2017-12-23 11:00] VITALS: BP 109/63; PULSE 70; TEMP 98.1
[2017-12-23 15:54] VITALS: BP 130/72; PULSE 65; TEMP 98.7
[2017-12-23 20:00] VITALS: BP 136/78; PULSE 68; TEMP 98
[2017-12-24 06:00] VITALS: BP 109/87; PULSE 70; TEMP 98.1
[2017-12-24 11:34] VITALS: BP 110/73; PULSE 67
[2017-12-24 16:39] VITALS: BP 119/64; PULSE 65; TEMP 99
[2017-12-24 19:27] VITALS: BP 138/75; PULSE 73; TEMP 97.6
[2017-12-25 05:07] VITALS: BP 183/84; PULSE 74; TEMP 98.4
[2017-12-25 06:25] VITALS: BP 159/81
[2017-12-25 10:59] VITALS: BP 114/81; PULSE 64; TEMP 98.3
[2017-12-25 15:14] VITALS: BP 136/77; PULSE 78; TEMP 98.6
[2017-12-25 20:24] VITALS: BP 169/79; PULSE 70; TEMP 98.3
[2017-12-26 06:30] VITALS: BP 151/71; PULSE 92; TEMP 98.4
[2017-12-26 07:20] LABS: CALCIUM 9.2 mg/dL (8.4-10.2); CREATININE, serum 0.69 mg/dL (0.66-1.25); MAGNESIUM 1.8 mg/dL (1.6-2.3); POTASSIUM 4.4 mmol/L (3.4-5.0)
[2017-12-26 09:25] VITALS: BP 106/64; PULSE 93; TEMP 99
[2017-12-26 09:35] VITALS: BP 93/44; PULSE 84; TEMP 98.8
[2017-12-26 09:50] VITALS: BP 111/65; PULSE 86; TEMP 98.8
[2017-12-26 10:10] VITALS: BP 94/48; PULSE 88; TEMP 98.8
[2017-12-26 10:24] LABS: ANION GAP 7 mmol/L (7-16); BLOOD UREA NITROGEN 21 mg/dL (9-20); CALCIUM 8.8 mg/dL (8.4-10.2); CARBON DIOXIDE 30 mmol/L (22-30); CREATININE, serum 0.77 mg/dL (0.66-1.25); GLUCOSE 187 mg/dL (74-106); MAGNESIUM 1.7 mg/dL (1.6-2.3); POTASSIUM 4.3 mmol/L (3.4-5.0); SODIUM 125 mmol/L (137-145)
[2017-12-26 10:26] LABS: CHLORIDE 88 mmol/L (98-107)
[2017-12-26] MEDS ORDERED: APRESOLINE 10MG10 MG PO (10:29)
[2017-12-26] MEDS ORDERED: LOPRESSOR 225 MG/TAB PO (10:30)
[2017-12-26] MEDS ORDERED: ATIVAN 2MG/ML2 MG/ML IV (10:30)
[2017-12-26] MEDS ORDERED: TYLENOL 325MG325 MG PO (10:30)
[2017-12-26] MEDS ORDERED: PROBIOTIC ACID1 EAC3 PO (10:31)
[2017-12-26] MEDS ORDERED: IMODIUM 2MG CAPS2 MG PO (10:31)
[2017-12-26 10:36] LABS: TROPONIN-I < 0.012 ng/mL (0.000-0.034)
[2017-12-26 11:05] VITALS: BP 108/59; PULSE 82; TEMP 98.7
== END 2017-12-26 11:25 | DRG 92 ==
PROVIDERS: Internal Medicine; Nurse Practitioner Family
DX: S06.5X9S Traumatic subdural hemorrhage with loss of consciousness of unspecified duration, sequela (principal); I50.22 Chronic systolic (congestive) heart failure; E22.2 Syndrome of inappropriate secretion of antidiuretic hormone; Z66 Do not resuscitate; I48.0 Paroxysmal atrial fibrillation; G40.909 Epilepsy, unspecified, not intractable, without status epilepticus; J84.112 Idiopathic pulmonary fibrosis; I11.0 Hypertensive heart disease with heart failure; I27.22 Pulmonary hypertension due to left heart disease; I25.10 Atherosclerotic heart disease of native coronary artery without angina pectoris; Z91.81 History of falling; Z87.891 Personal history of nicotine dependence; K52.9 Noninfective gastroenteritis and colitis, unspecified
CPT/HCPCS: 99222-AI; 99231-AI; 99232-AI; 99239

== ENCOUNTER 2017-12-26 10:40 | Inpatient (IN) | payer MEDICARE, BC ==
[~2017-12-26] VITALS: Ht 177.8 cm; Wt 61.8 kg
[~2017-12-26 10:40] MED LIST changes: +APRESOLINE 10MG10 MG PO; +ATIVAN 2MG/ML2 MG/ML IV; +IMODIUM 2MG CAPS2 MG PO; +INCRUSE EL62.5 MCG/A IH; +LOPRESSOR 225 MG/TAB PO; +PROAIR HFA0.09 MG/AC IH; +PROBIOTIC ACID1 EAC3 PO; +XOPENEX 0.0.63 MG/3 IH
[2017-12-26 12:00] VITALS: O2SAT 98
[2017-12-26 12:01] VITALS: O2SAT 96; O2SAT 97
[2017-12-26 12:02] VITALS: O2SAT 98
[2017-12-26 12:47] VITALS: BP 118/74; PULSE 84; TEMP 98.4
[2017-12-26 16:00] VITALS: BP 140/77; PULSE 65; TEMP 98
[2017-12-26 20:00] VITALS: BP 120/67; PULSE 69; TEMP 97.3
[2017-12-27 04:00] VITALS: BP 119/72; PULSE 64; TEMP 97.7
[2017-12-27 06:03] LABS: BASO # 0.1 (0.0-0.2); BASO % 0.4 % (0.0-2.0); EOS # 0.2 (0.0-0.7); EOS % 1.1 % (0-4.0); GRAN # 11.7 (1.4-6.5); GRAN % 77.9 % (42.2-75.2); HEMOGLOBIN 10.9 g/dl (13.5-18.0); LYMPH % 13.3 % (20.0-51.0); MEAN CELL VOLUME 94 fl (80.0-100.0); MEAN CORPUSCULAR HEMOGLOBIN 31 pg (27.0-31.0); MEAN CORPUSCULAR HGB CONC 33 g/dl (33.0-37.0); MONO % 6.7 % (1.7-9.3); PLATELET COUNT 128 K/mm3 (130-400); RED BLOOD COUNT 3.49 M/mm3 (4.20-5.60); REDCELL DISTRIBUTION WIDTH-CV 13.7 % (11.5-14.5)
[2017-12-27 06:05] LABS: HEMATOCRIT 32.9 % (42.0-52.0)
[2017-12-27 06:14] LABS: CALCIUM 8.5 mg/dL (8.4-10.2); CREATININE, serum 0.75 mg/dL (0.66-1.25); POTASSIUM 4.4 mmol/L (3.4-5.0)
[2017-12-27 08:00] VITALS: BP 128/65; PULSE 78; TEMP 98.4
[2017-12-27 08:10] LABS: COLLECTION METHOD CLEAN CATCH
[2017-12-27 08:22] LABS: PH 6 (5-8); SQUAMOUS EPITHELIAL 0-2 /hpf; URINE APPEARANCE Hazy; URINE BACTERIA Occasional /hpf; URINE BILIRUBIN Negative (NEGATIVE); URINE BLOOD Negative (NEGATIVE); URINE COLOR Yellow; URINE GLUCOSE Negative (NEGATIVE); URINE KETONE Negative (NEGATIVE); URINE LEUKOCYTE ESTERASE 2+ (NEGATIVE); URINE NITRATE Positive (NEGATIVE); URINE PROTEIN(semi-quant) 1+ (NEGATIVE); URINE UROBILINOGEN Negative (NEGATIVE)
[2017-12-27 12:00] VITALS: BP 124/83; PULSE 74; TEMP 97.9
[2017-12-27 16:00] VITALS: BP 149/80; PULSE 81; TEMP 97.1
[2017-12-28 00:05] VITALS: BP 138/78; PULSE 83; TEMP 98.2
[2017-12-28 04:30] VITALS: BP 153/71; PULSE 63; TEMP 98.1
[2017-12-28 07:57] VITALS: BP 112/66; PULSE 74; TEMP 98.5
[2017-12-28 08:19] LABS: BASO % 0.4 % (0.0-2.0); EOS # 0.1 (0.0-0.7); EOS % 1.1 % (0-4.0); GRAN # 8.1 (1.4-6.5); HEMATOCRIT 33.1 % (42.0-52.0); HEMOGLOBIN 11.4 g/dl (13.5-18.0); LYMPH % 10.1 % (20.0-51.0); MEAN CELL VOLUME 91 fl (80.0-100.0); MEAN CORPUSCULAR HEMOGLOBIN 31 pg (27.0-31.0); MEAN CORPUSCULAR HGB CONC 34 g/dl (33.0-37.0); MEAN PLATELET VOLUME 7.8 fl (7.4-10.4); MONO # 0.7 (0.1-0.6); MONO % 6.8 % (1.7-9.3); PLATELET COUNT 122 K/mm3 (130-400); RED BLOOD COUNT 3.65 M/mm3 (4.20-5.60); REDCELL DISTRIBUTION WIDTH-CV 13.2 % (11.5-14.5)
[2017-12-28 08:30] LABS: CALCIUM 8.9 mg/dL (8.4-10.2); CREATININE, serum 0.68 mg/dL (0.66-1.25); POTASSIUM 4.2 mmol/L (3.4-5.0)
[2017-12-28 11:47] VITALS: BP 113/76; PULSE 76; TEMP 98.3
[2017-12-28 16:42] VITALS: BP 125/79; PULSE 77; TEMP 98.4
[2017-12-28 20:23] VITALS: BP 172/78; PULSE 75; TEMP 98.3
[2017-12-29 03:35] VITALS: BP 135/67; PULSE 64
[2017-12-29 08:44] LABS: BASO % 0.4 % (0.0-2.0); EOS # 0.3 (0.0-0.7); EOS % 3.4 % (0-4.0); GRAN # 5.3 (1.4-6.5); GRAN % 66.3 % (42.2-75.2); HEMOGLOBIN 12.1 g/dl (13.5-18.0); LYMPH # 1.7 (1.2-3.4); LYMPH % 21.5 % (20.0-51.0); MEAN CELL VOLUME 93 fl (80.0-100.0); MEAN CORPUSCULAR HEMOGLOBIN 31 pg (27.0-31.0); MEAN CORPUSCULAR HGB CONC 34 g/dl (33.0-37.0); MEAN PLATELET VOLUME 7.9 fl (7.4-10.4); MONO # 0.6 (0.1-0.6); PLATELET COUNT 160 K/mm3 (130-400); RED BLOOD COUNT 3.89 M/mm3 (4.20-5.60); REDCELL DISTRIBUTION WIDTH-CV 13.2 % (11.5-14.5)
[2017-12-29 08:54] LABS: CALCIUM 8.8 mg/dL (8.4-10.2); CREATININE, serum 0.75 mg/dL (0.66-1.25); POTASSIUM 3.9 mmol/L (3.4-5.0)
[2017-12-29] MEDS ORDERED: KEPPRA 500MG500 MG PO (09:41)
[2017-12-29] MEDS ORDERED: KEPPRA750 MG PO (09:42)
[2017-12-29] MEDS ORDERED: OMNICEF 300MG300 MG PO (09:46)
== END 2017-12-29 12:08 | DRG 101 ==
LOC: ICU 10:40 → MEDICAL 12-27 20:22
PROVIDERS: Hospitalist; Physician Assistant
DX: R56.9 Unspecified convulsions (principal); I50.32 Chronic diastolic (congestive) heart failure; N39.0 Urinary tract infection, site not specified; E22.2 Syndrome of inappropriate secretion of antidiuretic hormone; E44.0 Moderate protein-calorie malnutrition; Z68.1 Body mass index [BMI] 19.9 or less, adult; Z66 Do not resuscitate; I11.0 Hypertensive heart disease with heart failure; J84.112 Idiopathic pulmonary fibrosis; I25.10 Atherosclerotic heart disease of native coronary artery without angina pectoris; Z87.891 Personal history of nicotine dependence; G62.9 Polyneuropathy, unspecified; Z91.81 History of falling; E87.8 Other disorders of electrolyte and fluid balance, not elsewhere classified; B96.20 Unspecified Escherichia coli [E. coli] as the cause of diseases classified elsewhere
CPT/HCPCS: 99223-AI; 99232-AI; 99233-AI; 99239; J0696; J7030

== ENCOUNTER → 2018-01-06 | Outpatient (REF) ==
[~2018-01-06] MED LIST changes: +KEPPRA750 MG PO; +OMNICEF 300MG300 MG PO
[2018-01-06 09:50] LABS: CALCIUM 8.6 mg/dL (8.4-10.2); CREATININE, serum 0.8 mg/dL (0.66-1.25); MAGNESIUM 1.8 mg/dL (1.6-2.3); POTASSIUM 4.3 mmol/L (3.4-5.0)
== END ==
LOC: ZLAB.STJ 09:27
PROVIDERS: Internal Medicine
DX: I10 Essential (primary) hypertension (principal); M62.81 Muscle weakness (generalized)

== ENCOUNTER 2018-01-18 17:52 | Emergency (ER) | payer MEDICARE, BC ==
[~2018-01-18] VITALS: Ht 177.8 cm; Wt 65.9 kg
[2018-01-18 17:56] VITALS: TEMP 98.8
[2018-01-18] MEDS ORDERED: KEPPRA750 MG PO (18:40)
[2018-01-18] MEDS ORDERED: KEPPRA 500MG500 MG PO (18:40)
[2018-01-18] MEDS ORDERED: ZITHROMAX 250M250 MG PO (19:11)
[2018-01-18 19:35] VITALS: BP 133/75; PULSE 67
== END 2018-01-18 19:30 | disposition home or self-care (01) ==
LOC: COL.ER 17:52
DX: S40.011A Contusion of right shoulder, initial encounter (principal); S70.01XA Contusion of right hip, initial encounter; E78.00 Pure hypercholesterolemia, unspecified; J84.10 Pulmonary fibrosis, unspecified; I10 Essential (primary) hypertension; J44.9 Chronic obstructive pulmonary disease, unspecified; Z87.891 Personal history of nicotine dependence; W19.XXXA Unspecified fall, initial encounter; Y92.129 Unspecified place in nursing home as the place of occurrence of the external cause

== ENCOUNTER → 2018-01-19 | Outpatient (REF) ==
[2018-01-19 09:29] LABS: COLLECTION METHOD CLEAN CATCH
[2018-01-19 09:47] LABS: MUCOUS Present /lpf; PH 6 (5-8); SQUAMOUS EPITHELIAL None Seen /hpf; URINE APPEARANCE Turbid; URINE BACTERIA None Seen /hpf; URINE BILIRUBIN Negative (NEGATIVE); URINE BLOOD Negative (NEGATIVE); URINE CALCIUM OXALATE CRYSTAL Present /hpf; URINE COLOR Amber; URINE GLUCOSE Negative (NEGATIVE); URINE KETONE Negative (NEGATIVE); URINE LEUKOCYTE ESTERASE Negative (NEGATIVE); URINE NITRATE Negative (NEGATIVE); URINE PROTEIN(semi-quant) Negative (NEGATIVE); URINE RBC 0-2 /hpf; URINE UROBILINOGEN Negative (NEGATIVE)
== END ==
LOC: ZLAB.STJ 09:29
PROVIDERS: Family Medicine
DX: Z01.89 Encounter for other specified special examinations (principal)

== ENCOUNTER → 2018-01-27 | Outpatient (REF) ==
[2018-01-27 14:27] LABS: CALCIUM 8.4 mg/dL (8.4-10.2); CREATININE, serum 0.61 mg/dL (0.66-1.25); MAGNESIUM 1.7 mg/dL (1.6-2.3); POTASSIUM 4.5 mmol/L (3.4-5.0)
== END ==
LOC: ZLAB.STJ 13:55
DX: E83.42 Hypomagnesemia (principal); R79.89 Other specified abnormal findings of blood chemistry

== ENCOUNTER 2018-03-12 12:01 | Emergency (ER) | payer MEDICARE, BC ==
[~2018-03-12] VITALS: Ht 177.8 cm; Wt 63.6 kg
[2018-03-12 12:06] VITALS: BP 172/81; TEMP 98.5
[2018-03-12] MEDS ORDERED: TOPROL XL 25MG25 MG PO (12:41)
[2018-03-12] MEDS ORDERED: NITRO-DUR0.4 MG/PAT TD (12:42)
[2018-03-12] MEDS ORDERED: MELATONIN 3MG PO (12:45)
[2018-03-12] MEDS ORDERED: ULTRAM 50MG TAB50 MG PO (12:48)
[2018-03-12 13:12] LABS: BASO # 0.1 (0.0-0.2); BASO % 0.8 % (0.0-2.0); EOS # 0.2 (0.0-0.7); EOS % 2.6 % (0-4.0); GRAN # 5.8 (1.4-6.5); GRAN % 73.2 % (42.2-75.2); HEMOGLOBIN 12.3 g/dl (13.5-18.0); LYMPH # 1.3 (1.2-3.4); LYMPH % 15.8 % (20.0-51.0); MEAN CELL VOLUME 89 fl (80.0-100.0); MEAN CORPUSCULAR HEMOGLOBIN 30 pg (27.0-31.0); MEAN CORPUSCULAR HGB CONC 34 g/dl (33.0-37.0); MEAN PLATELET VOLUME 9.3 fl (7.4-10.4); MONO # 0.6 (0.1-0.6); MONO % 7.2 % (1.7-9.3); PLATELET COUNT 160 K/mm3 (130-400); RED BLOOD COUNT 4.07 M/mm3 (4.20-5.60); REDCELL DISTRIBUTION WIDTH-CV 12.8 % (11.5-14.5)
[2018-03-12 13:14] LABS: HEMATOCRIT 36.3 % (42.0-52.0)
[2018-03-12 13:19] LABS: ALANINE AMINOTRANSFERASE 26 U/L (21-72); ALKALINE PHOSPHATASE 79 U/L (50-136); ANION GAP 5 mmol/L (7-16); AST,SGOT 23 U/L (15-37); BILIRUBIN,TOTAL 0.4 mg/dL (0.0-1.0); BLOOD UREA NITROGEN 18 mg/dL (9-20); CALCIUM 9.1 mg/dL (8.4-10.2); CARBON DIOXIDE 33 mmol/L (22-30); CREATININE, serum 0.83 mg/dL (0.66-1.25); GLUCOSE 125 mg/dL (74-106); POTASSIUM 4.2 mmol/L (3.4-5.0); SODIUM 128 mmol/L (137-145); TOTAL PROTEIN 7.1 gm/dL (6.4-8.2)
[2018-03-12 13:38] LABS: CHLORIDE 89 mmol/L (98-107); TROPONIN-I < 0.012 ng/mL (0.000-0.034)
[2018-03-12 13:41] LABS: COLLECTION METHOD CATHETER
[2018-03-12 13:47] LABS: PH 7 (5-8); SQUAMOUS EPITHELIAL None Seen /hpf; URINE APPEARANCE Clear; URINE BACTERIA None Seen /hpf; URINE BILIRUBIN Negative (NEGATIVE); URINE BLOOD Negative (NEGATIVE); URINE COLOR Yellow; URINE GLUCOSE Negative (NEGATIVE); URINE KETONE Negative (NEGATIVE); URINE LEUKOCYTE ESTERASE Negative (NEGATIVE); URINE NITRATE Negative (NEGATIVE); URINE PROTEIN(semi-quant) Negative (NEGATIVE); URINE RBC 0-2 /hpf; URINE UROBILINOGEN Negative (NEGATIVE)
[2018-03-12 16:00] VITALS: PULSE 80
== END 2018-03-12 16:02 | disposition home or self-care (01) ==
LOC: COL.ER 12:01
PROVIDERS: Emergency Medicine
DX: E87.1 Hypo-osmolality and hyponatremia (principal)

== ENCOUNTER 2018-03-13 11:37 | Emergency (ER) | payer MEDICARE, BC ==
[~2018-03-13] VITALS: Ht 177.8 cm; Wt 63.6 kg
[~2018-03-13 11:37] MED LIST changes: +MELATONIN 3MG PO; +ULTRAM 50MG TAB50 MG PO
[2018-03-13 11:45] VITALS: TEMP 98.4
[2018-03-13 12:17] LABS: BASO # 0.1 (0.0-0.2); BASO % 0.6 % (0.0-2.0); EOS # 0.2 (0.0-0.7); EOS % 1.6 % (0-4.0); GRAN # 7.8 (1.4-6.5); GRAN % 79.2 % (42.2-75.2); HEMATOCRIT 36.3 % (42.0-52.0); HEMOGLOBIN 12.4 g/dl (13.5-18.0); LYMPH % 10.6 % (20.0-51.0); MEAN CELL VOLUME 89 fl (80.0-100.0); MEAN CORPUSCULAR HEMOGLOBIN 30 pg (27.0-31.0); MEAN CORPUSCULAR HGB CONC 34 g/dl (33.0-37.0); MEAN PLATELET VOLUME 7.8 fl (7.4-10.4); MONO # 0.7 (0.1-0.6); MONO % 7.4 % (1.7-9.3); PLATELET COUNT 153 K/mm3 (130-400); REDCELL DISTRIBUTION WIDTH-CV 12.8 % (11.5-14.5)
[2018-03-13 12:30] LABS: ALBUMIN 4.1 gm/dL (3.5-5.0); BILIRUBIN,TOTAL 0.5 mg/dL (0.0-1.0); C-REACTIVE PROTEIN 0.7 mg/dL (0.0-0.9); CALCIUM 9.2 mg/dL (8.4-10.2); CREATININE, serum 0.85 mg/dL (0.66-1.25); POTASSIUM 4.3 mmol/L (3.4-5.0); TOTAL PROTEIN 7.2 gm/dL (6.4-8.2)
[2018-03-13 15:14] VITALS: BP 143/79; PULSE 75
== END 2018-03-13 15:14 | disposition home or self-care (01) ==
LOC: COL.ER 11:37
PROVIDERS: Family Medicine
DX: F03.90 Unspecified dementia, unspecified severity, without behavioral disturbance, psychotic disturbance, mood disturbance, and anxiety (principal); R27.0 Ataxia, unspecified
CPT/HCPCS: J2405; J7030

== ENCOUNTER 2018-04-18 12:10 | Emergency (ER) | payer MEDICARE, BC ==
[~2018-04-18] VITALS: Ht 180.3 cm; Wt 77.3 kg
[2018-04-18 12:14] VITALS: TEMP 97.4
[2018-04-18 12:33] LABS: BASO # 0.1 (0.0-0.2); BASO % 0.7 % (0.0-2.0); EOS # 0.4 (0.0-0.7); EOS % 3.4 % (0-4.0); GRAN % 68.6 % (42.2-75.2); HEMATOCRIT 37.6 % (42.0-52.0); HEMOGLOBIN 12.7 g/dl (13.5-18.0); LYMPH # 1.9 (1.2-3.4); LYMPH % 18.3 % (20.0-51.0); MEAN CELL VOLUME 90 fl (80.0-100.0); MEAN CORPUSCULAR HEMOGLOBIN 30 pg (27.0-31.0); MEAN CORPUSCULAR HGB CONC 34 g/dl (33.0-37.0); MEAN PLATELET VOLUME 8.1 fl (7.4-10.4); MONO # 0.9 (0.1-0.6); MONO % 8.4 % (1.7-9.3); PLATELET COUNT 173 K/mm3 (130-400); RED BLOOD COUNT 4.18 M/mm3 (4.20-5.60); REDCELL DISTRIBUTION WIDTH-CV 13.4 % (11.5-14.5)
[2018-04-18 12:54] LABS: ALANINE AMINOTRANSFERASE 30 U/L (21-72); ALBUMIN 4.1 gm/dL (3.5-5.0); ALKALINE PHOSPHATASE 82 U/L (50-136); ANION GAP 8 mmol/L (7-16); AST,SGOT 20 U/L (15-37); BILIRUBIN,TOTAL 0.3 mg/dL (0.0-1.0); BLOOD UREA NITROGEN 20 mg/dL (9-20); CARBON DIOXIDE 33 mmol/L (22-30); CHLORIDE 96 mmol/L (98-107); GLUCOSE 117 mg/dL (74-106); SODIUM 137 mmol/L (137-145); TOTAL PROTEIN 7.2 gm/dL (6.4-8.2)
[2018-04-18 13:05] LABS: TROPONIN-I < 0.012 ng/mL (0.000-0.034)
[2018-04-18] MEDS ORDERED: ZYPREXA2.5 MG PO (13:20)
[2018-04-18] MEDS ORDERED: PROZAC 10MG10 MG PO (13:21)
[2018-04-18] MEDS ORDERED: KEPPRA750 MG PO (14:04)
[2018-04-18 15:02] VITALS: BP 128/63; PULSE 63
== END 2018-04-18 15:44 | disposition home or self-care (01) ==
LOC: COL.ER 12:10
PROVIDERS: Emergency Medicine
DX: R56.9 Unspecified convulsions (principal)

== ENCOUNTER → 2018-06-20 | Outpatient (CLI) | payer MEDICARE, BC ==
[~2018-06-20] MED LIST changes: +PROZAC 10MG10 MG PO; +ZYPREXA2.5 MG PO
[2018-06-20 14:35] LABS: BASO # 0.1 (0.0-0.2); BASO % 0.6 % (0.0-2.0); EOS # 0.5 (0.0-0.7); GRAN # 7.6 (1.4-6.5); GRAN % 71.4 % (42.2-75.2); HEMATOCRIT 39.3 % (42.0-52.0); HEMOGLOBIN 13.3 g/dl (13.5-18.0); LYMPH # 1.5 (1.2-3.4); LYMPH % 13.6 % (20.0-51.0); MEAN CELL VOLUME 91 fl (80.0-100.0); MEAN CORPUSCULAR HEMOGLOBIN 31 pg (27.0-31.0); MEAN CORPUSCULAR HGB CONC 34 g/dl (33.0-37.0); MEAN PLATELET VOLUME 9.4 fl (7.4-10.4); MONO # 0.9 (0.1-0.6); MONO % 8.7 % (1.7-9.3); PLATELET COUNT 164 K/mm3 (130-400); RED BLOOD COUNT 4.32 M/mm3 (4.20-5.60); REDCELL DISTRIBUTION WIDTH-CV 13.2 % (11.5-14.5)
[2018-06-20 14:39] LABS: CALCIUM 9.1 mg/dL (8.4-10.2); CREATININE, serum 0.8 mg/dL (0.66-1.25); POTASSIUM 4.9 mmol/L (3.4-5.0)
== END ==
LOC: ZCOL.LAB 14:13 → ZLAB.STJ 14:13
PROVIDERS: Internal Medicine
DX: D64.9 Anemia, unspecified (principal)

== ENCOUNTER → 2018-06-23 | Outpatient (CLI) | payer MEDICARE, BC | LOC: COL.RAD 13:34 | DX: J84.9 Interstitial pulmonary disease, unspecified (principal) ==

== ENCOUNTER 2018-07-25 09:35 | Emergency (ER) | payer MEDICARE, BC, MEDICAID ==
[~2018-07-25] VITALS: Ht 172.7 cm; Wt 72.7 kg
[2018-07-25] MEDS ORDERED: KEPPRA750 MG PO (10:29)
[2018-07-25] MEDS ORDERED: NAMENDA XR 28MG PO (10:30)
[2018-07-25] MEDS ORDERED: ARICEPT10 MG PO (10:31)
[2018-07-25 10:58] LABS: BASO % 0.4 % (0.0-2.0); EOS # 0.3 (0.0-0.7); EOS % 3.4 % (0-4.0); GRAN # 6.4 (1.4-6.5); GRAN % 80.2 % (42.2-75.2); HEMOGLOBIN 12.8 g/dl (13.5-18.0); LYMPH # 0.6 (1.2-3.4); LYMPH % 7.3 % (20.0-51.0); MEAN CELL VOLUME 88 fl (80.0-100.0); MEAN CORPUSCULAR HEMOGLOBIN 31 pg (27.0-31.0); MEAN CORPUSCULAR HGB CONC 35 g/dl (33.0-37.0); MEAN PLATELET VOLUME 7.6 fl (7.4-10.4); MONO # 0.6 (0.1-0.6); MONO % 7.8 % (1.7-9.3); PLATELET COUNT 121 K/mm3 (130-400); RED BLOOD COUNT 4.18 M/mm3 (4.20-5.60)
[2018-07-25 11:03] LABS: HEMATOCRIT 36.7 % (42.0-52.0)
[2018-07-25 11:09] LABS: ALANINE AMINOTRANSFERASE 35 U/L (21-72); ALBUMIN 3.7 gm/dL (3.5-5.0); ALKALINE PHOSPHATASE 122 U/L (50-136); ANION GAP 8 mmol/L (7-16); AST,SGOT 31 U/L (15-37); BILIRUBIN,TOTAL 0.3 mg/dL (0.0-1.0); BLOOD UREA NITROGEN 17 mg/dL (9-20); CALCIUM 9.3 mg/dL (8.4-10.2); CARBON DIOXIDE 33 mmol/L (22-30); CREATININE, serum 0.96 mg/dL (0.66-1.25); GLUCOSE 137 mg/dL (74-106); POTASSIUM 4.6 mmol/L (3.4-5.0); SODIUM 128 mmol/L (137-145); TOTAL PROTEIN 6.8 gm/dL (6.4-8.2)
[2018-07-25 11:11] LABS: CHLORIDE 88 mmol/L (98-107)
[2018-07-25 11:27] LABS: TROPONIN-I < 0.012 ng/mL (0.000-0.035)
[2018-07-25 11:51] LABS: COLLECTION METHOD CLEAN CATCH
[2018-07-25 12:00] LABS: PH 6 (5-8); SQUAMOUS EPITHELIAL None Seen /hpf; URINE APPEARANCE Clear; URINE BACTERIA Rare /hpf; URINE BILIRUBIN Negative (NEGATIVE); URINE BLOOD Negative (NEGATIVE); URINE COLOR Yellow; URINE GLUCOSE Negative (NEGATIVE); URINE KETONE Negative (NEGATIVE); URINE LEUKOCYTE ESTERASE Negative (NEGATIVE); URINE NITRATE Negative (NEGATIVE); URINE PROTEIN(semi-quant) Negative (NEGATIVE); URINE RBC 0-2 /hpf; URINE UROBILINOGEN Negative (NEGATIVE)
[2018-07-25] MEDS ORDERED: OXYGEN MC (12:13)
[2018-07-25 13:34] VITALS: BP 102/62; PULSE 64; TEMP 97.5
== END 2018-07-25 13:35 | disposition home or self-care (01) ==
LOC: COL.ER 09:35
PROVIDERS: Emergency Medicine
DX: E87.6 Hypokalemia (principal); D69.6 Thrombocytopenia, unspecified